=== PATIENT | male | born 1960 | race Caucasian/White ===

== ENCOUNTER 2018-03-18 06:51 | Inpatient (IN) | payer OTHER ==
[~2018-03-18] VITALS: Ht 182.9 cm; Wt 97.1 kg
[2018-03-20] MEDS ORDERED: Patient's Own Med ORAL (21:05)
--- NOTE | 2018-04-01 15:30 | NUR ---
NURSE NOTES: received patient A/A/Ox4, personal belongings noted. admission profile done. VSS. Dr Maria present. own meds sent down to pharm. ambulatory with steady gait. No acute resp distress noted. kept bed in the lowest position. siderails are up x2, call light is within reach. will cont to monitor.
[2018-04-01 16:00] VITALS: BP 136/83
[2018-04-01 16:38] LABS: BASOPHILS % (AUTO) 1.1 % (0.0-2.0); EOSINOPHILS % (AUTO) 4.4 % (0.0-3.0); HEMATOCRIT 42.1 % (42.0-52.0); HEMOGLOBIN 14.4 G/DL (14.2-18.0); LYMPHOCYTES % (AUTO) 36.8 % (20.0-45.0); MEAN CORPUSCULAR VOLUME 92 FL (80-99); MONOCYTES % (AUTO) 6.1 % (1.0-10.0); NEUTROPHILS % (AUTO) 51.7 % (45.0-75.0); PLATELET COUNT 324 K/UL (150-450); RED BLOOD COUNT 4.57 M/UL (4.70-6.10); RED CELL DISTRIBUTION WIDTH 12.1 % (11.6-14.8); WHITE BLOOD COUNT 8.9 K/UL (4.8-10.8)
--- NOTE | 2018-04-01 16:39 | History & Physical ---
History and Physical History & Physicial Full H&P dictated #[id number]. S: elective admission for 2/5 infusion per [employer] protocol [id number]. O: VSS. PE done in office today unremarkable. CBC pending. EKG OK A: 1) HIV, well controlled 2) HTN 3) Hyperlipidemia 4) GERD P: 1) proceed per protocol; plan on infusion tomorrow morning. Hermelindo Maria MD Apr 01, 2018 16:39
[2018-04-01] MEDS ORDERED: VITAMIN D1000 UNI1 ORAL (18:55)
[2018-04-01] MEDS ORDERED: ZANTAC150 MG ORAL (18:55)
[2018-04-01] MEDS ORDERED: PROTONIX40 MG ORAL (18:55)
[2018-04-01] MEDS ORDERED: LIPITOR40 MG ORAL (18:55)
[2018-04-01] MEDS ORDERED: JULUCA 50-25 M1 EACH PO (18:55)
[2018-04-01] MEDS ORDERED: DIOVAN HCT 80MG1 TAB ORAL (18:55)
--- NOTE | 2018-04-01 19:10 | NUR ---
HAND-OFF: Report given to Arsema.
--- NOTE | 2018-04-01 19:15 | History and Physical Report ---
DATE OF ADMISSION: 04/01/2018 CHIEF COMPLAINT: The patient is admitted electively for participation in [employer] clinical trial [id number]. HISTORY OF PRESENT ILLNESS: The patient is a 57-year-old man, followed by me as an outpatient for HIV infection, which is well controlled. He is participating in the above-referenced clinical trial and is admitted for infusion of investigational product tomorrow morning. He feels well. PAST MEDICAL HISTORY: He was diagnosed with HIV in 2002. He has been well controlled first many years on Tenofovir and nevirapine. He was switched in the past year to Juluca, which he is tolerating well. He has a history of hyperlipidemia and hypertension and gastroesophageal reflux. SURGICAL HISTORY: None recent. ALLERGIES: No known drug allergies. FAMILY HISTORY: Noncontributory. SOCIAL HISTORY: The patient is . His partner also has HIV. He drinks socially and does not smoke. No recent recreational drug use. Denies recent travel. MEDICATIONS ON ADMISSION: Included Juluca 1 tablet daily, Lipitor 40 mg once a day, Diovan HCT 160/12.5 daily, and Zantac 300 mg once a day. REVIEW OF SYSTEMS: He denies fever. Denies weight loss. Denies chills. Denies night sweats. No history of shortness of breath, cough. No nausea, vomiting, or diarrhea. No dysuria or hematuria. No altered consciousness. No dizziness. PHYSICAL EXAMINATION: GENERAL: Revealed a well-nourished, well-developed male who is in no acute distress. VITAL SIGNS: Pending. HEENT: Normocephalic, atraumatic. Pupils equal, round, reactive. Oropharynx was without thrush or leukoplakia. NECK: Supple. No cervical or axillary adenopathy. LUNGS: Clear to auscultation. HEART: Regular rhythm without murmurs or gallops. ABDOMEN: Soft, nontender. No hepatosplenomegaly. EXTREMITIES: Without cyanosis, clubbing, or edema. NEUROLOGIC: Grossly nonfocal for motor or sensory deficits. ASSESSMENT: 1. Elective admission for participation in [id number]. 2. HIV infection, well controlled. 3. Hyperlipidemia. 4. Hypertension. 5. Gastroesophageal reflux. DISCUSSION: The patient has provided informed consent and wishes to proceed with the clinical trial. This represents the second 5 planned infusions on an every 2-week basis. The patient verbalized consent and we will proceed per protocol. PLAN: 1. Infusion tomorrow at 0830 hours. 2. Other management per protocol. Hermelindo Maria M.D. DR: ADILSON JOB#: [id number] CC: Hermelindo Maria M.D.; [address] [facility], [address]; [place] [address]; Fax#: [phone]
--- NOTE | 2018-04-01 19:53 | NUR ---
NURSE NOTES: Received report from Lindsey JEAN. Pt A&O x4, sitting up in chair. Pt on RA. No signs of pain or distress. Pt is ambulatory. Call light within reach & bed in lowest position. Will continue to monitor pt.
[2018-04-01 20:00] VITALS: BP 139/76
[2018-04-01] MEDS: VALSARTAN HCTZ ORAL SCH (20:50)
[2018-04-01] MEDS: ATORVASTATIN 40 MG ORAL SCH (20:50)
[2018-04-01] MEDS: RANITIDINE 300 MG ORAL SCH (20:50)
[2018-04-01] MEDS: JULUCA ORAL SCH (20:50)
[2018-04-02] VITALS: BP 130/76
--- NOTE | 2018-04-02 05:52 | NUR ---
NURSE NOTES: ER notified to insert IV. ER charge nurse will come at 0730.
--- NOTE | 2018-04-02 05:54 | NUR ---
Nurse's notes: Confirmed with Amanda Hansen, Director of ED/ICU, set time to insert iv access for this patient will be at 8 am and not 6 am as endorsed by day shift. patient aware of 8 am time.
--- NOTE | 2018-04-02 07:38 | NUR ---
HAND-OFF: Report given to Julisa JEAN. Pt is stable.
--- NOTE | 2018-04-02 07:39 | NUR ---
NURSE NOTES: Patient received in stable condition. Alert and oriented, breathing unlabored on room air. On strict NPO as of 729. Denies pain or discomfort at this time. Call light within reach, will continue to monitor.
[2018-04-02] MEDS ORDERED: Investigational Drug 150 MG in NS 48 ML IV ONE (08:00)
[2018-04-02 12:00] VITALS: BP 125/77
--- NOTE | 2018-04-02 15:12 | General Progress Note ---
Progress Note Progress Note S: Pt doing well, tolerated infusion of IP this morning without reported or observed AEs. No new complaints. O: VSS Afebrile HEENT: nc/at Neck: supple Lungs: clear Cor: reg rhythm, no murmurs Abd: soft, NT Ext: no c/c/e Neuro: non-focal for motor or sensory deficits Labs Test 04/01/18 15:35 White Blood Count 8.9 K/UL (4.8-10.8) Red Blood Count 4.57 M/UL (4.70-6.10) Hemoglobin 14.4 G/DL (14.2-18.0) Hematocrit 42.1 % (42.0-52.0) Mean Corpuscular Volume 92 FL (80-99) Mean Corpuscular Hemoglobin 31.5 PG (27.0-31.0) Mean Corpuscular Hemoglobin Concent 34.2 G/DL (32.0-36.0) Red Cell Distribution Width 12.1 % (11.6-14.8) Platelet Count 324 K/UL (150-450) Mean Platelet Volume 4.7 FL (6.5-10.1) Neutrophils (%) (Auto) 51.7 % (45.0-75.0) Lymphocytes (%) (Auto) 36.8 % (20.0-45.0) Monocytes (%) (Auto) 6.1 % (1.0-10.0) Eosinophils (%) (Auto) 4.4 % (0.0-3.0) Basophils (%) (Auto) 1.1 % (0.0-2.0) A: 1) Participation in clinical trial 2) Well-controlled HIV infection 3) Hypertension 4) Hyperlipidemia P: 1) Continue per [id number] 2) Tentatively plan on d/c am of 04/04. Hermelindo Maria MD Apr 02, 2018 15:12
[2018-04-02] MEDS ORDERED: NS 275ml ONE (15:15)
[2018-04-02] MEDS ORDERED: Tubing IV Secondary IV ONE (15:15)
[2018-04-02 16:00] VITALS: BP 127/68
--- NOTE | 2018-04-02 19:28 | NUR ---
HAND-OFF: Report given to Willie JEAN.
--- NOTE | 2018-04-02 19:30 | NUR ---
NURSE NOTES: Report taken from TED Becker. Patient awake in bed, A&Ox4. IV site c/d/i and hep locked. Skin intact, no issues. Patient asked to skip 0400 VS so he can get some sleep. Able to ambulate. Transfusion was 2/23 AM. bed in lowest position, call light within reach.
[2018-04-02 20:00] VITALS: BP 151/78
[2018-04-02] MEDS: JULUCA ORAL SCH (21:00)
[2018-04-02] MEDS: RANITIDINE 300 MG ORAL SCH (21:00)
[2018-04-02] MEDS: ATORVASTATIN 40 MG ORAL SCH (21:00)
[2018-04-02] MEDS: VALSARTAN HCTZ ORAL SCH (21:00)
[2018-04-03 02:30] VITALS: BP 128/73
--- NOTE | 2018-04-03 07:19 | NUR ---
HAND-OFF: Report given to TED Pop.
--- NOTE | 2018-04-03 07:32 | NUR ---
NURSE NOTES: Patient is awake and sitting at the edge of the bed eating breakfast. Patient is able to verbalize needs. Stable with no s/s acute distress. Denies pain or SOB at this time. Patient is in good spirits. Patient is comfortable with call light within reach. All needs met at this time. Will continue to monitor.
[2018-04-03 07:50] VITALS: BP 117/81
[2018-04-03 09:17] LABS: BASOPHILS % (AUTO) 1.7 % (0.0-2.0); EOSINOPHILS % (AUTO) 3.9 % (0.0-3.0); HEMATOCRIT 44.9 % (42.0-52.0); HEMOGLOBIN 14.9 G/DL (14.2-18.0); LYMPHOCYTES % (AUTO) 26.8 % (20.0-45.0); MEAN CORPUSCULAR VOLUME 92 FL (80-99); NEUTROPHILS % (AUTO) 58.6 % (45.0-75.0); PLATELET COUNT 318 K/UL (150-450); RED BLOOD COUNT 4.88 M/UL (4.70-6.10); RED CELL DISTRIBUTION WIDTH 12.5 % (11.6-14.8); WHITE BLOOD COUNT 7.5 K/UL (4.8-10.8)
[2018-04-03 12:00] VITALS: BP 138/72
--- NOTE | 2018-04-03 14:29 | General Progress Note ---
Progress Note Progress Note S: Pt feels well, no new complaints O: VSS Afebrile HEENT:nc/at Neck: supple Lungs: clear a/p Cor: reg rhythm, no murmur Abd: soft, NT Ext: no c/c/e Neuro: nonfocal Labs Test 04/01/18 15:35 04/03/18 08:30 White Blood Count 8.9 K/UL (4.8-10.8) 7.5 K/UL (4.8-10.8) Red Blood Count 4.57 M/UL (4.70-6.10) 4.88 M/UL (4.70-6.10) Hemoglobin 14.4 G/DL (14.2-18.0) 14.9 G/DL (14.2-18.0) Hematocrit 42.1 % (42.0-52.0) 44.9 % (42.0-52.0) Mean Corpuscular Volume 92 FL (80-99) 92 FL (80-99) Mean Corpuscular Hemoglobin 31.5 PG (27.0-31.0) 30.5 PG (27.0-31.0) Mean Corpuscular Hemoglobin Concent 34.2 G/DL (32.0-36.0) 33.2 G/DL (32.0-36.0)f Red Cell Distribution Width 12.1 % (11.6-14.8) 12.5 % (11.6-14.8) Platelet Count 324 K/UL (150-450) 318 K/UL (150-450) Mean Platelet Volume 4.7 FL (6.5-10.1) 5.5 FL (6.5-10.1) Neutrophils (%) (Auto) 51.7 % (45.0-75.0) 58.6 % (45.0-75.0) Lymphocytes (%) (Auto) 36.8 % (20.0-45.0) 26.8 % (20.0-45.0) Monocytes (%) (Auto) 6.1 % (1.0-10.0) 9.0 % (1.0-10.0) Eosinophils (%) (Auto) 4.4 % (0.0-3.0) 3.9 % (0.0-3.0) Basophils (%) (Auto) 1.1 % (0.0-2.0) 1.7 % (0.0-2.0) A: 1) Participation in [id number]. Pt doing well, no AEs noted 2) well controlled HIV infection 3) hypertension 4) hyperlipidemia 5) GERD P: 1) Continue management per protocol 2) Anticipate d/c tomorrow AM with follow--up in the office this week Hermelindo Maria MD Apr 03, 2018 14:29
[2018-04-03 16:00] VITALS: BP 132/83
--- NOTE | 2018-04-03 19:31 | NUR ---
HAND-OFF: Report given to Willie JEAN. Patient is stable.
--- NOTE | 2018-04-03 19:32 | NUR ---
NURSE NOTES: Report taken from TED Pop. Patient A&Ox4. Here for clinical trial. IV sites both removed, MD aware. No skin issues. Will prepare for d/c in the am. Bed in lowest position, call light within reach.
[2018-04-03 20:00] VITALS: BP 135/85
[2018-04-03] MEDS: JULUCA ORAL SCH (20:14)
[2018-04-03] MEDS: VALSARTAN HCTZ ORAL SCH (20:14)
[2018-04-03] MEDS: RANITIDINE 300 MG ORAL SCH (20:14)
[2018-04-03] MEDS: ATORVASTATIN 40 MG ORAL SCH (20:15)
[2018-04-04] VITALS: BP 116/66
--- NOTE | 2018-04-04 07:27 | NUR ---
HAND-OFF: Report given to TED Pop. Patient has D/C packet, waiting for final lab tests.
--- NOTE | 2018-04-04 07:30 | NUR ---
NURSE NOTES: Patient is in bed awake and able to verbalize needs. Patient is in good spirits. Patient will be discharged as ordered, patient is aware. Patient ate breakfast, tolerated well. Patient is comfortable in bed in locked position and call light within reach. Will continue to monitor.
[2018-04-04 08:00] VITALS: BP 128/67
[2018-04-04 08:58] LABS: BASOPHILS % (AUTO) 1.3 % (0.0-2.0); EOSINOPHILS % (AUTO) 3.4 % (0.0-3.0); HEMATOCRIT 46.6 % (42.0-52.0); HEMOGLOBIN 15.3 G/DL (14.2-18.0); LYMPHOCYTES % (AUTO) 22.1 % (20.0-45.0); MEAN CORPUSCULAR VOLUME 93 FL (80-99); NEUTROPHILS % (AUTO) 66.3 % (45.0-75.0); PLATELET COUNT 313 K/UL (150-450); RED BLOOD COUNT 4.99 M/UL (4.70-6.10); RED CELL DISTRIBUTION WIDTH 12.4 % (11.6-14.8); WHITE BLOOD COUNT 9.3 K/UL (4.8-10.8)
--- NOTE | 2018-04-04 09:00 | NUR ---
NURSE NOTES: Patient discharged home as ordered. Patient is in good spirits. Stable with no s/s acute distress. Denies pain and SOB at this time. Thorough patient teaching given, patient verbalized understanding. No IV access. All belongings and medications with patient. Skin is clean, dry, and intact.
--- NOTE | 2018-04-04 17:30 | Discharge Summary ---
DATE OF ADMISSION: 04/01/2018 DATE OF DISCHARGE: 04/04/2018 DISCHARGE DIAGNOSES: 1. Participation in [employer] clinical trial [id number]. 2. HIV infection, well controlled. 3. Hypertension. 4. Hyperlipidemia. 5. Gastroesophageal reflux. HOSPITAL COURSE: The patient is a 57-year-old man followed by me as an outpatient for HIV infection, which is well controlled, on Juluca. He is participating in the above-mentioned clinical trial. He was admitted for infusion of the investigational products, which he had without incident or observed adverse events on the 04/02/2018. He was observed for two nights and was discharged today in stable condition to home with follow-up in the office this week. This is the second 5 planned biweekly infusions. DISCHARGE MEDICATIONS: 1. Juluca one tab once daily. 2. Lipitor 40 mg once a day. 3. Diovan HCT 160/12.5 once a day. 4. Zantac 300 mg once a day. Hermelindo Maria M.D. DR: BRENDAN JOB#: [id number] CC: Hermelindo Maria M.D.; [address] [facility], [address]; [place] [address]; Fax#: [phone]
== END 2018-04-04 09:00 | disposition home or self-care (01) | DRG 977 ==
LOC: 3E 04-01 15:24
DX: B20 Human immunodeficiency virus [HIV] disease (principal); Z00.6 Encounter for examination for normal comparison and control in clinical research program; I10 Essential (primary) hypertension; E78.5 Hyperlipidemia, unspecified; K21.9 Gastro-esophageal reflux disease without esophagitis
CPT/HCPCS: 36415; 85025

== ENCOUNTER 2018-03-18 07:05 | Inpatient (IN) | payer OTHER ==
[~2018-03-18] VITALS: Ht 182.9 cm; Wt 94.8 kg
[2018-03-18 16:00] VITALS: BP 140/93
--- NOTE | 2018-03-18 16:41 | History & Physical ---
History and Physical History & Physicial Full note dictated #[id number] 57 yo admitted electively for participation in [id number]. He feels well. VSS Afebrile PE unremarkable Meds: Diovan HCT, Protonix, Lipitor, Juluca A: 1) well-controlled HIV infection 2) hyperipidemia 3) hypertension 4) GERD P: Pt has given informed consent for participation in above clinical trial. We will infuse IP tomorrow morning. All questions offered were addressed. Hermelindo Maria MD Mar 18, 2018 16:41
[2018-03-18 16:59] LABS: BASOPHILS % (AUTO) 1.2 % (0.0-2.0); EOSINOPHILS % (AUTO) 3.1 % (0.0-3.0); HEMATOCRIT 43.2 % (42.0-52.0); HEMOGLOBIN 14.8 G/DL (14.2-18.0); LYMPHOCYTES % (AUTO) 31.4 % (20.0-45.0); MEAN CORPUSCULAR VOLUME 94 FL (80-99); NEUTROPHILS % (AUTO) 55.3 % (45.0-75.0); PLATELET COUNT 257 K/UL (150-450); RED CELL DISTRIBUTION WIDTH 12.9 % (11.6-14.8); WHITE BLOOD COUNT 8.2 K/UL (4.8-10.8)
--- NOTE | 2018-03-18 17:00 | NUR ---
NURSE NOTES: Patient direct admit, arrived to room 305 at 1545. Vitals stable. Patient alert, oriented x4, calm. Denies pain/NV. Patient ambulatory. Admission profile done, home medications, allergies, diet. Patient oriented to room, call light and s/s to report. Call light in reach, bed in lowest position, will continue to monitor.
--- NOTE | 2018-03-18 19:30 | NUR ---
HAND-OFF: Report given to Marshall Saldana RN.
--- NOTE | 2018-03-18 19:40 | NUR ---
NURSE NOTES: Received report from TED Adams. Received pt sitting in bed talking on the phone, AOX4, denies pain, no distress noted. Bed in lowest position and locked, side rails up x 2, call light within reach. Will continue to monitor.
[2018-03-18] MEDS: PANTOPRAZOLE 40 MG ORAL SCH (20:40)
[2018-03-18] MEDS: JULUCA ORAL SCH (20:40)
[2018-03-18] MEDS: VALSARTAN 160 MG ORAL SCH (20:41)
[2018-03-18] MEDS: HCTZ 12.5 MG ORAL SCH (20:41)
--- NOTE | 2018-03-18 23:15 | History and Physical Report ---
DATE OF ADMISSION: 03/18/2018 CHIEF COMPLAINT: The patient is electively admitted for participation in [employer] clinical trial [id number]. HISTORY OF PRESENT ILLNESS: The patient is a 57-year-old man followed by me as an outpatient for well-controlled human immunodeficiency virus infection. He wishes to participate in the above-captioned clinical trial and is now admitted for this. PAST MEDICAL HISTORY: He was diagnosed with human immunodeficiency virus in 2002. He started tenofovir and nevirapine and has been undetectable since; his most recent human immunodeficiency virus regimen is one Juluca tablet once a day, which he has been tolerating well. Other issues in his past history include gastroesophageal reflux for which he takes a proton pump inhibitor. He has hyperlipidemia, which was noted in 2008. He is taking Lipitor. There is also history of hypertension also diagnosed in 2008 for which he is taking Diovan HCT. There is a history of tinnitus and neuropathic pain, but no other significant medical illnesses. SURGICAL HISTORY: None recent. MEDICATIONS: As an outpatient included Diovan HCT 160 to 12.5 one tablet daily, Lipitor 40 mg once a day, Protonix 40 mg once a day, and Juluca 1 tablet once a day. ALLERGIES: None. FAMILY HISTORY: Noncontributory. SOCIAL HISTORY: The patient is . His partner also has human immunodeficiency virus. He drinks socially. He does not smoke. No recent recreational drug use. He works in an office environment. No recent travel. REVIEW OF SYSTEMS: No recent fever, cough, shortness of breath. No nausea, vomiting, or diarrhea. No hematuria. No dysuria. No chest pain. No shortness of breath. No headache. No paresthesias. PHYSICAL EXAM: GENERAL: Revealed a well-nourished, well-developed male in no acute distress. VITAL SIGNS: His temperature was 97.8, his heart rate was 81 and regular, blood pressure was 115/76, and his weight was 212 pounds. His respirations were 16 per minute. HEENT: Normocephalic and atraumatic. Pupils are equal, round, and reactive. Oropharynx was without thrush. NECK: Supple. No cervical or axillary lymphadenopathy. LUNGS: Clear to auscultation. HEART: Had a regular rhythm without murmurs or gallops. ABDOMEN: Soft and nontender. No hepatosplenomegaly. EXTREMITIES: Without cyanosis, clubbing, or edema. NEUROLOGIC: Without focal deficits. IMPRESSION: 1. Participation in clinical trial. 2. Human immunodeficiency virus infection, well controlled. 3. Hyperlipidemia. 4. Gastroesophageal reflux. 5. Hypertension. DISCUSSION/PLAN: The patient is a very pleasant 57-year-old man, who chooses to participate in a clinical trial. The risks and benefits have been discussed thoroughly and he verbalizes acceptance. The plan will be to infuse him tomorrow morning with the investigational product and he will be observed for the following 2 nights. We will anticipate discharging him on 03/21/2018. The patient was given an opportunity to verbalize questions; all were addressed. Hermelindo Maria M.D. DR: LIAN/BRIE JOB#: [id number] CC: Hermelindo Maria M.D.; [address] [place] [address], [facility] [address]; [place], [place] ; Fax#: [phone] [facility]
--- NOTE | 2018-03-19 07:52 | NUR ---
HAND-OFF: Report given to TED Cloud. Pt in stable condition.
[2018-03-19 08:00] VITALS: BP 112/74
--- NOTE | 2018-03-19 08:00 | NUR ---
NURSE NOTES: Patient sitting in bed. No complain of pain or distress at this time. Skin intact and dry. Bed lowest position. Call light within reach. Will continue to monitor.
[2018-03-19] MEDS ORDERED: Investigational Drug 150 MG in NS 48 ML IV ONE (08:40)
--- NOTE | 2018-03-19 10:50 | General Progress Note ---
Progress Note Progress Note S: Patient feels well, no new complaints. He tolerated infusion of IP well this morning. O: VSS, Afebrile. HEENT: nc/at Neck: supple Lungs: clear a/p Cor: reg Abd: soft, NT Ext: no c/c/e Labs Test 03/18/18 16:15 White Blood Count 8.2 K/UL (4.8-10.8) Red Blood Count 4.60 M/UL (4.70-6.10) Hemoglobin 14.8 G/DL (14.2-18.0) Hematocrit 43.2 % (42.0-52.0) Mean Corpuscular Volume 94 FL (80-99) Mean Corpuscular Hemoglobin 32.2 PG (27.0-31.0) Mean Corpuscular Hemoglobin Concent 34.3 G/DL (32.0-36.0) Red Cell Distribution Width 12.9 % (11.6-14.8) Platelet Count 257 K/UL (150-450) Mean Platelet Volume 5.3 FL (6.5-10.1) Neutrophils (%) (Auto) 55.3 % (45.0-75.0) Lymphocytes (%) (Auto) 31.4 % (20.0-45.0) Monocytes (%) (Auto) 9.0 % (1.0-10.0) Eosinophils (%) (Auto) 3.1 % (0.0-3.0) Basophils (%) (Auto) 1.2 % (0.0-2.0) A: 1) Participation in [id number]. No AEs noted, pt wishes to continue. 2) HIV, well controlled 3) GERD 4) Hyperlipidemia 5) Hypertension P: 1) Continue management per [id number] protocol Hermelindo Maria MD Mar 19, 2018 10:50
[2018-03-19] MEDS ORDERED: Tubing IV Secondary IV ONE (10:58)
[2018-03-19] MEDS ORDERED: NS 275ml ONE (10:58)
--- NOTE | 2018-03-19 19:20 | NUR ---
HAND-OFF: Report given to Marshall RN/Jenny RN. Patient in stable condition.
--- NOTE | 2018-03-19 20:00 | NUR ---
NURSE NOTES: Received report from TED Cloud. Received pt in bed, AOX4, denies any pain , no distress noted. Safety measures maintained. Bed in lowest position and locked, side rails up x 2, call light within reach. Will continue to monitor.
[2018-03-19] MEDS: JULUCA ORAL SCH (21:46)
[2018-03-19] MEDS: PANTOPRAZOLE 40 MG ORAL SCH (21:46)
[2018-03-19] MEDS: VALSARTAN 160 MG ORAL SCH (21:46)
[2018-03-19] MEDS: HCTZ 12.5 MG ORAL SCH (21:46)
[2018-03-20 03:00] VITALS: BP 114/78
--- NOTE | 2018-03-20 03:00 | NUR ---
NURSE NOTES: Weight via standing scale: 207.6 lbs
--- NOTE | 2018-03-20 07:21 | NUR ---
HAND-OFF: Report given to TED Chung. Pt in stable condition.
--- NOTE | 2018-03-20 07:50 | NUR ---
NURSE NOTES: Pt in bed a/o x 4 in no acute distress having breakfast. Pt denies pain. BS normoactive, lung sounds clear, heart sounds s1s2. Pt has RFA IV SL. pt made aware of plan of care, educated on the use of call light. Will continue to monitor. Addendum: 03/20/18 at 1834 by Juliet Nagy RN Disregard, the pt does not have RFA IV, in error.
[2018-03-20 09:26] LABS: BASOPHILS % (AUTO) 1.6 % (0.0-2.0); HEMATOCRIT 49.5 % (42.0-52.0); HEMOGLOBIN 16.3 G/DL (14.2-18.0); LYMPHOCYTES % (AUTO) 31.1 % (20.0-45.0); MEAN CORPUSCULAR VOLUME 94 FL (80-99); NEUTROPHILS % (AUTO) 52.4 % (45.0-75.0); PLATELET COUNT 287 K/UL (150-450); RED BLOOD COUNT 5.26 M/UL (4.70-6.10)
--- NOTE | 2018-03-20 11:14 | NUR ---
CASE MANAGEMENT: REVIEW 03/20/2018 SI:INFECTION. participate in a clinical trial. temperature was 97.8, his heart rate was 81 and regular,blood pressure was 115/76 IS: CLINICAL TRIAL MEDS MED/SURG STATUS DCP: PATIENT TO BE DISCHARGED TO HOME ONCE MEDICALLY CLEARED. PLAN OF CARE: infuse him tomorrow morning with the investigational product and he will be observed for the following 2 nights
[2018-03-20 12:00] VITALS: BP 125/79
--- NOTE | 2018-03-20 18:02 | NUR ---
Pt here for clinical trial, pt calm a/o x 4 in no acute distress. Pt under observation only, VS stable. Pt has call light within reach, bed in low position, no acute events.
--- NOTE | 2018-03-20 19:41 | NUR ---
NURSE NOTES:Patient received from Marshall Reilly patient in bed A/A/AOX4 . patient denies any at this time . no sob/ no n/v noted . safety measured and maintained . call light within reach . bed in low position at all times . will continue to monitor patient . Addendum: 03/21/18 at 0042 by POLLY MONK LVN Patient received from Juliet Reilly Patient in stable condition. call light within reach . bed in low position at all times . will continue to monitor.
--- NOTE | 2018-03-20 19:41 | NUR ---
HAND-OFF: Report given to ELLIOTT Anton. Pt left in stable condition, a/o x 4 in no acute distress. Call light within reach, bed in low position.
[2018-03-20 20:00] VITALS: BP 135/82
[2018-03-20] MEDS: JULUCA ORAL SCH (20:50)
[2018-03-20] MEDS: HCTZ 12.5 MG ORAL SCH (20:50)
[2018-03-20] MEDS: VALSARTAN 160 MG ORAL SCH (20:50)
[2018-03-20] MEDS: PANTOPRAZOLE 40 MG ORAL SCH (20:50)
[2018-03-20] MEDS ORDERED: Patient's Own Med ORAL (21:05)
--- NOTE | 2018-03-21 07:30 | NUR ---
NURSE NOTES: Patient is in bed awake and able to verbalize needs. Patient denies pain at this time. Patient is stable with no s/s acute distress. Finalizing discharge as ordered, will discharge patient after blood draw is complete. All needs met at this time. Patient comfortable in bed in locked position and call light within reach. Will continue to monitor.
--- NOTE | 2018-03-21 07:30 | NUR ---
HAND-OFF: Report given to Carlos Reilly Patient in stable condition.
--- NOTE | 2018-03-21 07:30 | NUR ---
NURSE NOTES: Patient to be discharge at 09:00 am to check patient personal belongings. patient home meds to be bean picker at pharmacy.
[2018-03-21 08:00] VITALS: BP 136/81
--- NOTE | 2018-03-21 08:57 | NUR ---
NURSE NOTES: Patient discharged home as ordered. Stable with no s/s acute distress. Patient denies pain or discomfort. Breathing is even and unlabored. No IV access. Patient is AOx4. Skin is clean, dry and intact. Thorough patient teaching given to patient, verbalized understanding. All meds returned to patient from pharmacy, patient verbalized understanding of medications, dosing, and frequency. Patient has all belongings. Left hospital in private vehicle.
[2018-03-21 09:34] LABS: BASOPHILS % (AUTO) 1.1 % (0.0-2.0); EOSINOPHILS % (AUTO) 1.6 % (0.0-3.0); HEMATOCRIT 50.1 % (42.0-52.0); HEMOGLOBIN 16.6 G/DL (14.2-18.0); MEAN CORPUSCULAR VOLUME 94 FL (80-99); MONOCYTES % (AUTO) 10.2 % (1.0-10.0); NEUTROPHILS % (AUTO) 60.1 % (45.0-75.0); PLATELET COUNT 283 K/UL (150-450); RED BLOOD COUNT 5.32 M/UL (4.70-6.10); RED CELL DISTRIBUTION WIDTH 13.1 % (11.6-14.8)
--- NOTE | 2018-03-21 14:30 | Discharge Summary ---
DATE OF ADMISSION: 03/18/2018 DATE OF DISCHARGE: 03/21/2018 DISCHARGE DIAGNOSES: 1. Participation in [employer] clinical trial [id number]. 2. Hypertension. 3. Gastroesophageal reflux. 4. Well-controlled HIV infection. 5. Hyperlipidemia. HISTORY OF PRESENT ILLNESS AND HOSPITAL COURSE: The patient is a 57-year-old male followed by sc as an outpatient for HIV infection. He was diagnosed with HIV infection in 2002 and has been on different antiretroviral agents since. He has never had virologic failure. His most recent regimen is 1 Juluca tablet daily once a day, which he has been tolerating well. The patient also has a history of GERD for which he takes a proton pump inhibitor, although he is considering changing this to a H2 shira. The patient has well-controlled hyperlipidemia and hypertension, which are being treated. He has no other significant medical illnesses. The patient was informed of the opportunity to participate in the above-named clinical trial. The patient wished to proceed after providing informed consent. The patient was admitted on 03/18/2018 and was given the investigational product (or placebo) on 03/19/2018. He tolerated this well without any adverse events noted. The patient was observed for 2 nights following in the hospital and is discharged today in stable condition to home. He will be followed up in the office this week. DISCHARGE MEDICATIONS: Juluca 1 tablet daily, Lipitor 40 mg a day, Diovan HCT 160/12.5 once a day, and Protonix 40 mg once a day. Hermelindo Maria M.D. DR: ADILSON JOB#: [id number] CC:
== END 2018-03-21 09:00 | disposition home or self-care (01) | DRG 977 ==
LOC: 3E 15:17
DX: B20 Human immunodeficiency virus [HIV] disease (principal); Z00.6 Encounter for examination for normal comparison and control in clinical research program; E78.5 Hyperlipidemia, unspecified; I10 Essential (primary) hypertension; K21.9 Gastro-esophageal reflux disease without esophagitis
CPT/HCPCS: 36415; 85025

== ENCOUNTER 2018-04-15 06:58 | Inpatient (IN) | payer OTHER ==
[~2018-04-15] VITALS: Ht 182.9 cm; Wt 95.8 kg
[~2018-04-15 06:58] MED LIST: DIOVAN HCT 80MG1 TAB ORAL; JULUCA 50-25 M1 EACH PO; LIPITOR40 MG ORAL; PROTONIX40 MG ORAL; Patient's Own Med ORAL; VITAMIN D1000 UNI1 ORAL; ZANTAC150 MG ORAL
[2018-04-15 15:41] LABS: BASOPHILS % (AUTO) 1.5 % (0.0-2.0); EOSINOPHILS % (AUTO) 3.4 % (0.0-3.0); HEMATOCRIT 44.4 % (42.0-52.0); HEMOGLOBIN 14.9 G/DL (14.2-18.0); LYMPHOCYTES % (AUTO) 36.4 % (20.0-45.0); MEAN CORPUSCULAR VOLUME 91 FL (80-99); MONOCYTES % (AUTO) 8.5 % (1.0-10.0); NEUTROPHILS % (AUTO) 50.3 % (45.0-75.0); PLATELET COUNT 288 K/UL (150-450); RED BLOOD COUNT 4.85 M/UL (4.70-6.10); RED CELL DISTRIBUTION WIDTH 12.1 % (11.6-14.8); WHITE BLOOD COUNT 7.9 K/UL (4.8-10.8)
--- NOTE | 2018-04-15 15:46 | History & Physical ---
History and Physical History & Physicial Full H&P dictated #[id number]. 57 yo male admitted for 3rd of 5 biweekly infusions of IP as part of [employer] protocol [id number]. Since last visit, he has done well with no new complaints. PE: T 97.8 BP 121/79 R 16 P 83 HEENT: nc/at Lungs: clear Cor: reg Abd: soft, NT Ext: no c/c/e Skin: no rashes Labs Test 04/15/18 15:07 White Blood Count 7.9 K/UL (4.8-10.8) Red Blood Count 4.85 M/UL (4.70-6.10) Hemoglobin 14.9 G/DL (14.2-18.0) Hematocrit 44.4 % (42.0-52.0) Mean Corpuscular Volume 91 FL (80-99) Mean Corpuscular Hemoglobin 30.7 PG (27.0-31.0) Mean Corpuscular Hemoglobin Concent 33.6 G/DL (32.0-36.0) Red Cell Distribution Width 12.1 % (11.6-14.8) Platelet Count 288 K/UL (150-450) Mean Platelet Volume 4.7 FL (6.5-10.1) Neutrophils (%) (Auto) 50.3 % (45.0-75.0) Lymphocytes (%) (Auto) 36.4 % (20.0-45.0) Monocytes (%) (Auto) 8.5 % (1.0-10.0) Eosinophils (%) (Auto) 3.4 % (0.0-3.0) Basophils (%) (Auto) 1.5 % (0.0-2.0) A: 1) Participation in clinical trial 2) HIV well controlled 3) HTN 4) hyperlipidemia 5) GERD P: 1) proceed with infusion of [id number] vs placebo in AM 2) further management per protocol Hermelindo Maria MD Apr 15, 2018 15:46
[2018-04-15 16:00] VITALS: BP 135/78
[2018-04-15] MEDS ORDERED: Vitamin D 1000 IU Tab ORAL SCH (17:15)
--- NOTE | 2018-04-15 19:18 | NUR ---
Report given to oncoming shift
--- NOTE | 2018-04-15 19:18 | NUR ---
NURSE NOTES:Patient received A/AOX4 . Family friend at bedside . patient denies any pain at this time . no s/s of distress noted . call light within reach . bed in low position . will continue to monitor patient .
[2018-04-15 20:00] VITALS: BP 128/75
[2018-04-15] MEDS: ATORVASTATIN 40 MG ORAL SCH (20:54)
[2018-04-15] MEDS: DIOVAN HCT ORAL SCH (20:54)
[2018-04-15] MEDS: RANITIDINE 300 MG ORAL SCH (20:54)
--- NOTE | 2018-04-15 21:31 | History and Physical Report ---
DATE OF ADMISSION: 04/15/2018 CHIEF COMPLAINT: The patient is electively admitted at this time to continue his participation in [employer] Clinical Trial [id number]. HISTORY OF PRESENT ILLNESS: The patient is a 57-year-old man followed by me as an outpatient for human immunodeficiency virus infection, which has historically been well controlled currently on Juluca. He is admitted now in preparation for administering the investigational product tomorrow morning. He has no new complaints at this time. PAST MEDICAL HISTORY: The patient was diagnosed with human immunodeficiency virus in 2002. He was on tenofovir and nevirapine with undetectable viral load and was switched within the past year to Juluca, which he is tolerating well. There is also history of gastroesophageal reflux disease, hypertension, and hypercholesterolemia. PAST SURGICAL HISTORY: None relevant to this admission. MEDICATIONS: As an outpatient include Zantac 300 mg once a day, Diovan HCT 160/12.5 once a day, Lipitor 40 mg once a day, and Juluca 1 tablet once a day. ALLERGIES: No known drug allergies. FAMILY HISTORY: Noncontributory. The patient is . His spouse also has human immunodeficiency virus. SOCIAL HISTORY: He drinks socially. He does not smoke cigarettes and is not using recreational drugs. REVIEW OF SYSTEMS: He denies fever or chills. He denies night sweats. No history of sore throat, cough, or chest congestion. No chest pain. No dyspnea on exertion. No nausea, vomiting, or diarrhea. No hematuria. No dysuria. No alterations in the state of consciousness. PHYSICAL EXAMINATION: GENERAL: Revealed a well-nourished and well-developed male, who is in no acute distress. He is alert and oriented x4. VITAL SIGNS: His temperature when examined in the clinic today was 97.8, the heart rate was 79 and regular, the blood pressure was 121/79, and his respirations were 16 per minute. His weight was 216.2 pounds. HEENT: Normocephalic and atraumatic. Pupils are equal, round, and reactive. Oropharynx is without thrush or leukoplakia. NECK: Supple. There is no cervical or axillary adenopathy. LUNGS: Clear to auscultation. HEART: Had a regular rhythm without murmurs or gallops. ABDOMEN: Soft, nontender, and mildly obese. There were no masses palpated. No hepatosplenomegaly. EXTREMITIES: Without cyanosis, clubbing, or edema. NEUROLOGIC: Grossly nonfocal for motor or sensory deficits. SKIN: Had no rashes. LABORATORY DATA: Pending. IMPRESSION: 1. Participation in [employer] clinical trial. 2. Well-controlled human immunodeficiency virus infection. 3. Hyperlipidemia. 4. Hypertension. 5. Gastroesophageal reflux. DISCUSSION: The patient is a very pleasant 57-year-old man who is now admitted to the third of 5 projected infusions of [id number] versus placebo. He has been informed of risks and benefits of participation and verbalizes understanding. He wishes to continue under plan. 1. Infuse investigational product tomorrow morning with close monitoring over the following 2 nights. 2. Continue his other medications. Hermelindo Maria M.D. DR: CHRISTINE JOB#: [id number] CC: RED
[2018-04-16 04:00] VITALS: BP 113/69
[2018-04-16] MEDS ORDERED: Investigational Drug 150 MG in NS 48 ML IV ONE (07:30)
[2018-04-16 08:00] VITALS: BP 107/65
--- NOTE | 2018-04-16 08:00 | NUR ---
NURSE NOTES: Received report from Sloane JEAN, pt a/a/o x4 pt laying in bed with no signs of distress or other issues at this time. IV on the left AC gauge #20 and IV left hand gauge #20 heplock. pt ambulating around the room with steady gait. Dr. Maria at bedside starting the clinical trial medication. RN will monitor pt. call light within reach. bed in lowest position. side rales up x2. I will f/u as needed.
[2018-04-16] MEDS ORDERED: Atorvastatin 80mg tab ORAL SCH (09:00)
[2018-04-16 12:00] VITALS: BP 114/67
--- NOTE | 2018-04-16 15:03 | General Progress Note ---
Progress Note Progress Note S: Pt doing well, tolerated infusion of IP well this morning with no observed AEs O: VSS Afebrile HEENT: nc/at Neck: supple Lungs: clear to a/p Cor: reg rate, rhythm; no murmurs Abd: soft, NT BS present Ext: no c/c/e Neuro: non-focal Skin: no rashes A: 1) Participation in [id number] 2) HIV, well-controlled 3) hypertension 4) hyperlipidemia P: 1) Continue per protocol 2) check CBC in AM 3) plan on d/c 04/18 if stable Hermelindo Maria MD Apr 16, 2018 15:03
[2018-04-16 16:00] VITALS: BP 113/72
--- NOTE | 2018-04-16 19:21 | NUR ---
NURSE NOTES:Patient received from Kashif Reilly. Patient denies any pain . no s/s of distress noted LAC G#20 H/L Patent and intact . call light within reach . bed in low position at all times . will continue to monitor
--- NOTE | 2018-04-16 19:21 | NUR ---
HAND-OFF: Report given to Sloane ELECTROPLATING SALES REPRESENTATIVE, pt instable condition.
[2018-04-16 20:00] VITALS: BP 119/69
[2018-04-16] MEDS ORDERED: NS 275ml ONE (20:01)
[2018-04-16] MEDS ORDERED: Tubing IV Secondary IV ONE (20:01)
[2018-04-16] MEDS: ATORVASTATIN 40 MG ORAL SCH (20:35)
[2018-04-16] MEDS: DIOVAN HCT ORAL SCH (20:36)
[2018-04-16] MEDS: RANITIDINE 300 MG ORAL SCH (20:36)
[2018-04-17 03:00] VITALS: BP 110/67
--- NOTE | 2018-04-17 07:25 | NUR ---
HAND-OFF: Report given to KARINA Alvarez
--- NOTE | 2018-04-17 07:30 | NUR ---
NURSE NOTES: Patient is in bed awake and able to verbalize needs. Patient stable and here for clinical trial. Denies pain or discomfort. Patient is in good spirits. VSS. All needs met at this time. Patient is comfortable in bed with call light within reach. Will continue to monitor.
[2018-04-17 08:00] VITALS: BP 126/68
[2018-04-17 10:26] LABS: BASOPHILS % (AUTO) 1.2 % (0.0-2.0); EOSINOPHILS % (AUTO) 3.6 % (0.0-3.0); HEMATOCRIT 47.4 % (42.0-52.0); HEMOGLOBIN 15.3 G/DL (14.2-18.0); LYMPHOCYTES % (AUTO) 34.4 % (20.0-45.0); MEAN CORPUSCULAR VOLUME 93 FL (80-99); MONOCYTES % (AUTO) 11.9 % (1.0-10.0); NEUTROPHILS % (AUTO) 48.9 % (45.0-75.0); PLATELET COUNT 283 K/UL (150-450); RED BLOOD COUNT 5.07 M/UL (4.70-6.10); RED CELL DISTRIBUTION WIDTH 12.1 % (11.6-14.8); WHITE BLOOD COUNT 8.1 K/UL (4.8-10.8)
--- NOTE | 2018-04-17 17:53 | NUR ---
CHARGE NURSE NOTE: Pt brought a dog to his room, (stated - "this is a service dog"). Dr. Maria was notified, he said it is OK for pt to keep his dog at the bedside.
--- NOTE | 2018-04-17 19:30 | NUR ---
HAND-OFF: Report given to Kesha JEAN. Patient is stable.
--- NOTE | 2018-04-17 19:38 | NUR ---
NURSE NOTES: Pt received awake, alert with dog at bedside, no signs of distress or c/o pain, able to make needs known, will continue to monitor.
[2018-04-17] MEDS: ATORVASTATIN 40 MG ORAL SCH (20:50)
[2018-04-17] MEDS: DIOVAN HCT ORAL SCH (20:51)
[2018-04-17] MEDS: RANITIDINE 300 MG ORAL SCH (20:52)
--- NOTE | 2018-04-18 07:20 | NUR ---
NURSE NOTES: Patient is in bed awake and able to verbalize needs. Patient denies pain at this time. Stable with no s/s acute distress. Patient is waiting for clinic staff to draw blood and take EKG. WIll continue to monitor.
--- NOTE | 2018-04-18 07:28 | NUR ---
HAND-OFF: Report given to TED Pop.
--- NOTE | 2018-04-18 09:00 | NUR ---
NURSE NOTES: Patient discharged home as ordered. Stable with no s/s acute distress. Denies pain and SOB. No IV access. Skin is clean, dry, and intact. Patient has all belongings. All procedures completed by clinic staff Pedro Luis. Blood sample sent to lab. Clinic staff gave patient teaching, patient verbalized understanding. Patient assisted downstairs by clinic staff.
[2018-04-18 09:42] LABS: BASOPHILS % (AUTO) 1.4 % (0.0-2.0); EOSINOPHILS % (AUTO) 2.4 % (0.0-3.0); HEMATOCRIT 44.6 % (42.0-52.0); HEMOGLOBIN 14.8 G/DL (14.2-18.0); MEAN CORPUSCULAR VOLUME 93 FL (80-99); MONOCYTES % (AUTO) 13.7 % (1.0-10.0); NEUTROPHILS % (AUTO) 45.6 % (45.0-75.0); PLATELET COUNT 275 K/UL (150-450); RED BLOOD COUNT 4.78 M/UL (4.70-6.10); RED CELL DISTRIBUTION WIDTH 12.6 % (11.6-14.8); WHITE BLOOD COUNT 7.4 K/UL (4.8-10.8)
--- NOTE | 2018-04-18 11:32 | NUR ---
CASE MANAGEMENT:REVIEW 04/15/18 ~ PATIENT WAS ADMITTED FOR [employer] CLINICAL TRIAL 04/18/18 ~ DISCHARGED
--- NOTE | 2018-04-19 | Discharge Summary ---
DATE OF ADMISSION: 04/15/2018 DATE OF DISCHARGE: 04/18/2018 DISCHARGE DIAGNOSES: 1. Participation in [employer] clinical trial, [id number]. 2. HIV infection, well controlled. 3. Hypertension. 4. Hypercholesterolemia. 5. Gastroesophageal reflux disease. HISTORY OF PRESENT ILLNESS AND HOSPITAL COURSE: The patient is a 57-year-old man followed by dc as an outpatient for asymptomatic HIV infection. He is a participant in the above-mentioned clinical trial. He was admitted for the third of 5 planned biweekly infusions of his investigational agent, [id number] (or placebo). This study is double-blind. The patient had the investigational product infused on the morning of 04/16/2018. He tolerated it well without any evident adverse events and was observed in the hospital for two nights subsequently. DISCHARGE DISPOSITION: The patient is discharged home with self care. DISCHARGE CONDITION: Stable. DISCHARGE MEDICATIONS: Include Juluca 1 tablet once a day, Diovan HCT 160/12.5 mg once a day, Zantac 300 mg once a day, and Lipitor 40 mg once a day. Hermelindo Maria M.D. DR: BRENDAN JOB#: [id number] CC: Hermelindo Maria M.D.; [address] [facility], [address]; [place] [address]; Fax#: [phone]
== END 2018-04-18 09:00 | disposition home or self-care (01) | DRG 977 ==
LOC: 3E 14:55
DX: B20 Human immunodeficiency virus [HIV] disease (principal); Z00.6 Encounter for examination for normal comparison and control in clinical research program; I10 Essential (primary) hypertension; E78.5 Hyperlipidemia, unspecified; K21.9 Gastro-esophageal reflux disease without esophagitis
CPT/HCPCS: 36415; 85025

== ENCOUNTER 2018-04-29 07:58 | Inpatient (IN) | payer OTHER ==
[~2018-04-29] VITALS: Ht 182.9 cm; Wt 96.2 kg
--- NOTE | 2018-04-29 15:30 | NUR ---
NURSE NOTES: received as direct admit for clinical trials. admission profile done. personal belongings reviewed and noted. made aware of the current orders. bed is in lowest position. call light is within reach. siderails are up x2. no acte resp distress noted. will cont to monitor.
[2018-04-29 16:00] VITALS: BP 149/95
[2018-04-29 16:20] LABS: BASOPHILS % (AUTO) 1.4 % (0.0-2.0); EOSINOPHILS % (AUTO) 4.6 % (0.0-3.0); HEMATOCRIT 45.5 % (42.0-52.0); HEMOGLOBIN 14.9 G/DL (14.2-18.0); LYMPHOCYTES % (AUTO) 37.1 % (20.0-45.0); MEAN CORPUSCULAR VOLUME 92 FL (80-99); MONOCYTES % (AUTO) 5.9 % (1.0-10.0); PLATELET COUNT 342 K/UL (150-450); RED BLOOD COUNT 4.96 M/UL (4.70-6.10); WHITE BLOOD COUNT 7.2 K/UL (4.8-10.8)
--- NOTE | 2018-04-29 16:20 | History & Physical ---
History and Physical History & Physicial Full H&P dictated #[id number] 57 yo male admitted for 4th of 5 planned infusions per [employer] protocol [id number]. No new complaints since last seen by me 2 weeks ago. T 98.6 HEENT: nc/at Lungs: clear Cor: reg Abd: soft, NT Skin: no rashes A: 1) well-contolled HIV 2) HTN 3) GERD 4) hyperlipidemia 5) HCV-auto cure P: Proceed per protocol; plan on infusion tomorrow AM at 0830. Hermelindo Maria MD Apr 29, 2018 16:20
--- NOTE | 2018-04-29 16:30 | NUR ---
NURSE NOTES: Dr Maria present and met with patient in the room. patient does not have an IV access and will be inserted tomorrow. will cont to monitor.
--- NOTE | 2018-04-29 19:16 | NUR ---
NURSE NOTES:Patient received from Maeve Hernandez Patient A/A/OX4 . With family friend at bedside . Patient denies any pain at this time . no s/s of distress noted . call light within reach . bed in low position at all times . will continue to monitor
--- NOTE | 2018-04-29 19:16 | NUR ---
HAND-OFF: Report given to Sloane.
[2018-04-29 20:00] VITALS: BP 142/81
--- NOTE | 2018-04-29 21:00 | NUR ---
NURSE NOTES:Patient own Medication Valtrex 1gm po. Patient stated " I'm not taking that Valtrex medication charge nurse and pharmacy notified and aware ,Pharmacy left message to Hermelindo Nicolas .Awaiting to call back.
[2018-04-29] MEDS: JULUCA ORAL SCH (21:05)
[2018-04-29] MEDS: ZANTAC 300 MG ORAL SCH (21:06)
[2018-04-29] MEDS: HYDROCHLOROTHIAZIDE ORAL SCH (21:32)
[2018-04-29] MEDS: VALSARTAN ORAL SCH (21:32)
--- NOTE | 2018-04-29 21:45 | History and Physical Report ---
DATE OF ADMISSION: 04/29/2018 CHIEF COMPLAINT: The patient is electively admitted for continued participation in [employer] protocol [id number]. HISTORY OF PRESENT ILLNESS: The patient is a 57-year-old man followed by me as an outpatient for human immunodeficiency virus infection which has been well controlled. The patient has elected to participate in the above-referenced clinical trial and is admitted for the fourth of 5 biweekly infusions of investigational agent (GS-9722 or a placebo). The patient has tolerated the previous 3 infusions well with no adverse events noted. The interim medical history since his last visit 2 weeks ago has been unremarkable. PAST MEDICAL HISTORY: The patient was diagnosed with human immunodeficiency virus in 2002. 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 The patient has never had virologic failure for his human immunodeficiency virus treatments. Most recently, he has been on Juluca 1 tablet daily. There is a history of gastroesophageal reflux, hypertension, and hypercholesterolemia. ALLERGIES: No known drug allergies. FAMILY HISTORY: Noncontributory. SOCIAL HISTORY: The patient is . His partner also has human immunodeficiency virus. He drinks socially and does not smoke. No recent recreational drug use. MEDICATIONS ON ADMISSION: Include Juluca 1 tablet daily, Zantac 300 mg once a day, Lipitor 40 mg once a day, and Diovan HCT 160/12.5 once a day. REVIEW OF SYSTEMS: Denies fevers, cough, shortness of breath, and chills. Denies chest pain. Denies nausea, vomiting, or diarrhea. Denies dysuria or hematuria. No headaches. No loss of consciousness. PHYSICAL EXAM: GENERAL: Revealed a well-nourished, well-developed male, who is in no acute distress. He was alert and oriented x4. VITAL SIGNS: Temperature of 98.6, blood pressure 137/85, respirations 16, BMI of 29, and a heart rate of 86. HEENT: Normocephalic and atraumatic. Pupils are equal, round, and reactive. Oropharynx was without thrush or leukoplakia. NECK: Supple. There is no cervical or axillary adenopathy. LUNGS: Clear to auscultation. HEART: Has a regular rhythm without murmurs or gallops. ABDOMEN: Soft and nontender. No hepatosplenomegaly. EXTREMITIES: Without cyanosis, clubbing, or edema. NEUROLOGIC: Nonfocal for motor or sensory deficits. There are no rashes apparent. IMPRESSION: 1. Participation in clinical trial. 2. Human immunodeficiency virus infection, well controlled. 3. Hyperlipidemia. 4. Hypertension. 5. Gastroesophageal reflux disease. 6. Hepatitis C, autocure. DISCUSSION: The patient is a 57-year-old man, who is electively admitted to continue his participation in this clinical trial. Risks and benefits were discussed in detail and the patient wishes to proceed. Under plan of management per study protocol, we will plan on infusing the patient tomorrow morning with investigational product. Hermelindo Maria M.D. DR: CHRISTINE JOB#: [id number] CC: Hermelindo Maria M.D.; [facility]; [place] [address]; Fax#: [phone]
[2018-04-30 04:00] VITALS: BP 123/82
--- NOTE | 2018-04-30 07:16 | NUR ---
HAND-OFF: Report given to Jennie ReillyPatient in stable condition.
--- NOTE | 2018-04-30 07:47 | NUR ---
NURSE NOTES: Patient received in stable condition, resting in bed. Alert and oriented, denies respiratory distress and pain at this time. Call light placed within reach, will continue to monitor.
[2018-04-30] MEDS ORDERED: Investigational Drug 150 MG in NS 48 ML IV ONE (08:00)
--- NOTE | 2018-04-30 12:21 | General Progress Note ---
Progress Note Progress Note S: Pt was infused the morning with IP which was tolerated well. No AEs noted; pt feels well. O: VSS Afebrile HEENT: nc/at Lungs: clear Cor: reg Abd: soft, nt Ext: no c/c/e Skin: no rashes Labs Test 04/29/18 15:50 White Blood Count 7.2 K/UL (4.8-10.8) Red Blood Count 4.96 M/UL (4.70-6.10) Hemoglobin 14.9 G/DL (14.2-18.0) Hematocrit 45.5 % (42.0-52.0) Mean Corpuscular Volume 92 FL (80-99) Mean Corpuscular Hemoglobin 30.0 PG (27.0-31.0) Mean Corpuscular Hemoglobin Concent 32.7 G/DL (32.0-36.0) Red Cell Distribution Width 12.0 % (11.6-14.8) Platelet Count 342 K/UL (150-450) Mean Platelet Volume 5.1 FL (6.5-10.1) Neutrophils (%) (Auto) 51.0 % (45.0-75.0) Lymphocytes (%) (Auto) 37.1 % (20.0-45.0) Monocytes (%) (Auto) 5.9 % (1.0-10.0) Eosinophils (%) (Auto) 4.6 % (0.0-3.0) Basophils (%) (Auto) 1.4 % (0.0-2.0) A: 1) participation in [id number] 2) HIV, well controlled 3) hyperlipidemia 4) HTN 5) GERD P: Continue management per protocol Hermelindo Maria MD Apr 30, 2018 12:21
[2018-04-30] MEDS ORDERED: Tubing IV Secondary IV ONE (14:32)
[2018-04-30] MEDS ORDERED: NS 500ML ONE (14:32)
[2018-04-30 16:00] VITALS: BP 132/71
--- NOTE | 2018-04-30 19:07 | NUR ---
HAND-OFF: Report given to Elan JEAN.
--- NOTE | 2018-04-30 19:07 | NUR ---
NURSE NOTES:Patient received from Julisa Raza R.N. Patient in bed A/A/OX4 . Patient denies any pain at this time . no s/s of distress noted RAC g#20 H/L Patent and intact , call light witin reach bed in low position at all times . will continue to monitor.
[2018-04-30 20:00] VITALS: BP 130/77
[2018-04-30] MEDS: JULUCA ORAL SCH (20:37)
[2018-04-30] MEDS: VALSARTAN ORAL SCH (20:38)
[2018-04-30] MEDS: HYDROCHLOROTHIAZIDE ORAL SCH (20:38)
[2018-04-30] MEDS: ZANTAC 300 MG ORAL SCH (20:39)
[2018-05-01 02:00] VITALS: BP 114/77
--- NOTE | 2018-05-01 07:45 | NUR ---
NURSE NOTES: Patient received in bed sitting having breakfast. aware and reminded with diet instructions. Able to make things known. denies respiratory distress and pain at this time. Call light placed within reach, will continue to monitor.
[2018-05-01 08:00] VITALS: BP 130/78
[2018-05-01 09:08] LABS: BASOPHILS % (AUTO) 1.4 % (0.0-2.0); EOSINOPHILS % (AUTO) 4.8 % (0.0-3.0); HEMATOCRIT 46.2 % (42.0-52.0); HEMOGLOBIN 14.9 G/DL (14.2-18.0); LYMPHOCYTES % (AUTO) 36.6 % (20.0-45.0); MEAN CORPUSCULAR VOLUME 92 FL (80-99); MONOCYTES % (AUTO) 9.4 % (1.0-10.0); NEUTROPHILS % (AUTO) 47.8 % (45.0-75.0); PLATELET COUNT 318 K/UL (150-450); RED CELL DISTRIBUTION WIDTH 12.4 % (11.6-14.8); WHITE BLOOD COUNT 6.9 K/UL (4.8-10.8)
--- NOTE | 2018-05-01 16:07 | NUR ---
CASE MANAGEMENT: INITIAL REVIEW PATIENT IS APART OF A CLINICAL TRIAL
--- NOTE | 2018-05-01 19:00 | NUR ---
HAND-OFF: Report given to
--- NOTE | 2018-05-01 19:30 | NUR ---
NURSE NOTES: Received report from ELLIOTT Mcfarlane. Received pt sitting up in bed, AOX4, denies any pain, no distress noted. Bed in lowest position and locked, side rails up x 2, call light within reach. Will continue to monitor.
[2018-05-01 20:00] VITALS: BP 121/77
[2018-05-01] MEDS: JULUCA ORAL SCH (20:16)
[2018-05-01] MEDS: HYDROCHLOROTHIAZIDE ORAL SCH (20:16)
[2018-05-01] MEDS: VALSARTAN ORAL SCH (20:16)
[2018-05-01] MEDS: ZANTAC 300 MG ORAL SCH (20:16)
--- NOTE | 2018-05-02 07:08 | NUR ---
HAND-OFF: Report given to TED Murguia. Pt in stable condition.
--- NOTE | 2018-05-02 07:52 | General Progress Note ---
Progress Note Progress Note Late entry. Pt was seen by me at 2:00pm Monday 05/01. S: No new complaints O: VSS Afebrile HEENT: nc/at Neck: supple Lungs: clear Cor: reg Abd: soft Skin: no rashes Labs Test 04/29/18 15:50 05/01/18 08:30 White Blood Count 7.2 K/UL (4.8-10.8) 6.9 K/UL (4.8-10.8) Red Blood Count 4.96 M/UL (4.70-6.10) 5.00 M/UL (4.70-6.10) Hemoglobin 14.9 G/DL (14.2-18.0) 14.9 G/DL (14.2-18.0) Hematocrit 45.5 % (42.0-52.0) 46.2 % (42.0-52.0) Mean Corpuscular Volume 92 FL (80-99) 92 FL (80-99) Mean Corpuscular Hemoglobin 30.0 PG (27.0-31.0) 29.9 PG (27.0-31.0) Mean Corpuscular Hemoglobin Concent 32.7 G/DL (32.0-36.0) 32.4 G/DL (32.0-36.0) Red Cell Distribution Width 12.0 % (11.6-14.8) 12.4 % (11.6-14.8) Platelet Count 342 K/UL (150-450) 318 K/UL (150-450) Mean Platelet Volume 5.1 FL (6.5-10.1) 5.4 FL (6.5-10.1) Neutrophils (%) (Auto) 51.0 % (45.0-75.0) 47.8 % (45.0-75.0) Lymphocytes (%) (Auto) 37.1 % (20.0-45.0) 36.6 % (20.0-45.0) Monocytes (%) (Auto) 5.9 % (1.0-10.0) 9.4 % (1.0-10.0) Eosinophils (%) (Auto) 4.6 % (0.0-3.0) 4.8 % (0.0-3.0) Basophils (%) (Auto) 1.4 % (0.0-2.0) 1.4 % (0.0-2.0) A: 1) participation in [employer] protocol [id number]; pt doing well with no AEs at this time. 2) HIV, well-controlled 3) GERD 4) hyperlipidemia 5) hypertension P: 1) Plan is to discharge 05/02 with follow-up in office this week. Hermeilndo Maria MD May 02, 2018 07:52
--- NOTE | 2018-05-02 08:15 | NUR ---
NURSE NOTES: Pt received awake in stable condition aware and awaiting discharge. Packet prepared , personal belongings with patient. Claims Director gave pt his personal medication from pharmacy. Pt to return in two weeks. Escorted by staff member to exit. No concerns verbalized at the time of discharge.
[2018-05-02 08:38] LABS: BASOPHILS % (AUTO) 1.5 % (0.0-2.0); EOSINOPHILS % (AUTO) 4.2 % (0.0-3.0); HEMATOCRIT 48.3 % (42.0-52.0); HEMOGLOBIN 15.6 G/DL (14.2-18.0); LYMPHOCYTES % (AUTO) 37.2 % (20.0-45.0); MEAN CORPUSCULAR VOLUME 93 FL (80-99); MONOCYTES % (AUTO) 7.3 % (1.0-10.0); NEUTROPHILS % (AUTO) 49.8 % (45.0-75.0); PLATELET COUNT 335 K/UL (150-450); RED BLOOD COUNT 5.21 M/UL (4.70-6.10); WHITE BLOOD COUNT 8.3 K/UL (4.8-10.8)
--- NOTE | 2018-05-03 13:51 | Discharge Summary ---
DATE OF ADMISSION: 04/29/2018 DATE OF DISCHARGE: 05/02/2018 DISCHARGE DIAGNOSES: 1. Participation in [employer], clinical trial [id number]. 2. Human immunodeficiency virus infection, well controlled. 3. Hyperlipidemia. 4. Hypertension. 5. Gastroesophageal reflux. HISTORY OF PRESENT ILLNESS AND HOSPITAL COURSE: The patient is a 57-year-old man followed by co as an outpatient for HIV infection which is well controlled. He was admitted electively on 04/29/2018 to continue his participation in the above captioned clinical trial. This was his fourth of five projected biweekly administrations of investigational product. On the morning of the second hospital day, the patient had the infusion which was tolerated well. There were no adverse events noted. The patient was observed in the hospital for the next two nights and was now discharged in stable condition to home. Follow-up will be in the office in one week. DISCHARGE MEDICINES: Include Juluca 1 tablet daily, Zantac 300 mg once a day, Lipitor 40 mg a day, and Diovan HCT 160/12.5 once a day. Hermelindo Maria M.D. DR: Marimar JOB#: [id number] CC: Hermelindo Maria M.D.; [address] [place] [address]; [place] [address]; Fax#: [phone]
== END 2018-05-02 08:10 | disposition home or self-care (01) | DRG 977 ==
LOC: 3E 14:43
DX: B20 Human immunodeficiency virus [HIV] disease (principal); Z00.6 Encounter for examination for normal comparison and control in clinical research program; E78.5 Hyperlipidemia, unspecified; I10 Essential (primary) hypertension; K21.9 Gastro-esophageal reflux disease without esophagitis; E78.00 Pure hypercholesterolemia, unspecified; Z86.19 Personal history of other infectious and parasitic diseases
CPT/HCPCS: 36415; 85025

== ENCOUNTER 2018-05-13 09:34 | Inpatient (IN) | payer OTHER ==
[~2018-05-13] VITALS: Ht 182.9 cm; Wt 96.7 kg
--- NOTE | 2018-05-13 13:35 | History & Physical ---
History and Physical History & Physicial Full H&P dictated #[id number]. 57 yo male electively admitted for participation in [id number]. This is the 5th of five planned infusions of IP. He is doing well, with no AEs noted since last infusion 2 weeks ago. O: VSS pending HEENT: nc/at Lungs: clear Cor: reg Abd: soft, NT Labs: pending A: 1) Participation in clinical trial 2) HIV-well controlled 3) HTN 4) hyperlipidemia 5) GERD P: 1) manage per protocol 2) plan on infusion tomorrow morning. Hermelindo Maria MD May 13, 2018 13:35
[2018-05-13 14:54] LABS: BASOPHILS % (AUTO) 1.1 % (0.0-2.0); HEMATOCRIT 43.6 % (42.0-52.0); HEMOGLOBIN 14.4 G/DL (14.2-18.0); LYMPHOCYTES % (AUTO) 29.6 % (20.0-45.0); MEAN CORPUSCULAR VOLUME 90 FL (80-99); MONOCYTES % (AUTO) 7.5 % (1.0-10.0); NEUTROPHILS % (AUTO) 59.8 % (45.0-75.0); PLATELET COUNT 292 K/UL (150-450); RED BLOOD COUNT 4.84 M/UL (4.70-6.10); RED CELL DISTRIBUTION WIDTH 12.1 % (11.6-14.8); WHITE BLOOD COUNT 7.4 K/UL (4.8-10.8)
[2018-05-13 16:50] VITALS: BP 134/91
--- NOTE | 2018-05-13 17:45 | History and Physical Report ---
DATE OF ADMISSION: 05/13/2018 CHIEF COMPLAINT: The patient is electively admitted for continued participation in [employer] clinical trial [id number]. HISTORY OF PRESENT ILLNESS: The patient is a 57-year-old man followed by me as an outpatient for HIV infection which has been well controlled. He is a participant in the above-mentioned clinical trial. He is now admitted for fifth of 5 biweekly infusions of investigational product. He has tolerated the previous four doses well. PAST MEDICAL HISTORY: The patient was diagnosed with HIV in 2002. He was started on tenofovir and nevirapine and has been undetectable ever since. He was switched to Juluca about a year ago and is doing well. Other issues include gastroesophageal reflux, hyperlipidemia, and hypertension. PAST SURGICAL HISTORY: None recent. MEDICATIONS: Include Juluca one tab daily, Diovan HCT 160/12.5 one tab daily, Lipitor 40 mg once a day, and Zantac 300 mg once a day. ALLERGIES: No known drug allergies. FAMILY HISTORY: Noncontributory. SOCIAL HISTORY: The patient is . His partner also has HIV infection which was well controlled. He drinks socially. Does not smoke. He had a recent urine screen positive for cocaine. There is no history of recent travel. REVIEW OF SYSTEMS: The patient denies fevers, chills, sweats. Denies cough or shortness of breath. Denies chest pain. Denies nausea, vomiting, or diarrhea. Denies dysuria or hematuria. No headache or skin rashes. PHYSICAL EXAMINATION: GENERAL: Revealed a well-nourished and well-developed male, who is in no acute distress. He is alert and oriented x4. VITAL SIGNS: Pending. HEENT: Normocephalic and atraumatic. Pupils are equal, round, and reactive. Oropharynx is without thrush or leukoplakia. NECK: Supple. There is no cervical or axillary adenopathy. LUNGS: Clear to auscultation. HEART: Regular rhythm without murmurs or gallops. ABDOMEN: Soft and nontender. No hepatosplenomegaly. EXTREMITIES: Without cyanosis, clubbing, or edema. NEUROLOGIC: Grossly nonfocal for motor or sensory deficits. SKIN: No rashes. LABORATORY DATA: Pending. IMPRESSION: 1. Participation in [employer] clinical trial [id number]. 2. HIV infection, well-controlled. 3. Hypertension. 4. Hyperlipidemia. 5. Gastroesophageal reflux. DISCUSSION: The patient is a pleasant 57-year-old man who continues his participation in the above clinical trail, this would be the final infusion of his participation. He will be followed as an outpatient after this. PLAN: 1. Manage per protocol. 2. We will plan on infusing him tomorrow morning and observing him the two subsequent nights with projected discharge on 04/15/2018. Hermelindo Maria M.D. DR: Marimar JOB#: [id number] CC:
[2018-05-13 20:00] VITALS: BP 121/73
[2018-05-13] MEDS: ATORVASTATIN 40MG ORAL SCH (21:04)
[2018-05-13] MEDS: VALSARTAN HCTZ ORAL SCH (21:04)
[2018-05-13] MEDS: RANITIDINE 300MG ORAL SCH (21:04)
[2018-05-13] MEDS: JULUCA ORAL SCH (21:05)
[2018-05-14] VITALS: BP 118/73
[2018-05-14] MEDS ORDERED: Investigational Drug 150 MG in NS 48 ML IV ONE (08:00)
--- NOTE | 2018-05-14 11:13 | General Progress Note ---
Progress Note Progress Note S: Pt doing well, no new complaints. Tolerated infusion of IP this morning without incident. O: VSS. Afebrile HEENT: nc/at Neck: supple Lungs: clear Cor: reg Abd: soft, NT Skin: no rashes Ext: no c/c/e Labs Test 05/13/18 14:40 White Blood Count 7.4 K/UL (4.8-10.8) Red Blood Count 4.84 M/UL (4.70-6.10) Hemoglobin 14.4 G/DL (14.2-18.0) Hematocrit 43.6 % (42.0-52.0) Mean Corpuscular Volume 90 FL (80-99) Mean Corpuscular Hemoglobin 29.9 PG (27.0-31.0) Mean Corpuscular Hemoglobin Concent 33.1 G/DL (32.0-36.0) Red Cell Distribution Width 12.1 % (11.6-14.8) Platelet Count 292 K/UL (150-450) Mean Platelet Volume 5.1 FL (6.5-10.1) Neutrophils (%) (Auto) 59.8 % (45.0-75.0) Lymphocytes (%) (Auto) 29.6 % (20.0-45.0) Monocytes (%) (Auto) 7.5 % (1.0-10.0) Eosinophils (%) (Auto) 2.0 % (0.0-3.0) Basophils (%) (Auto) 1.1 % (0.0-2.0) A: 1) Participation in [id number] 2) HIV infection, well-controlled 3) HTN 4) hyperlipidemia 5) GERD P: 1) Continue management per protocol 2) If stable, will anticipate discharge 05/16 Hermelindo Maria MD May 14, 2018 11:13
[2018-05-14] MEDS ORDERED: Acetaminophen 500mg (ES) tab ORAL PRN (14:15)
[2018-05-14] MEDS ORDERED: NS 275ml ONE (17:23)
[2018-05-14] MEDS ORDERED: Tubing IV Secondary IV ONE (17:23)
[2018-05-14 20:00] VITALS: BP 132/76
[2018-05-14] MEDS: ATORVASTATIN 40MG ORAL SCH (20:42)
[2018-05-14] MEDS: RANITIDINE 300MG ORAL SCH (20:42)
[2018-05-14] MEDS: VALSARTAN HCTZ ORAL SCH (20:43)
[2018-05-14] MEDS: JULUCA ORAL SCH (20:43)
[2018-05-15 02:00] VITALS: BP 107/63
[2018-05-15 09:09] LABS: BASOPHILS % (AUTO) 1.3 % (0.0-2.0); EOSINOPHILS % (AUTO) 3.4 % (0.0-3.0); HEMATOCRIT 44.3 % (42.0-52.0); HEMOGLOBIN 14.5 G/DL (14.2-18.0); LYMPHOCYTES % (AUTO) 31.8 % (20.0-45.0); MEAN CORPUSCULAR VOLUME 90 FL (80-99); MONOCYTES % (AUTO) 11.3 % (1.0-10.0); NEUTROPHILS % (AUTO) 52.2 % (45.0-75.0); PLATELET COUNT 303 K/UL (150-450); RED BLOOD COUNT 4.92 M/UL (4.70-6.10); RED CELL DISTRIBUTION WIDTH 12.2 % (11.6-14.8); WHITE BLOOD COUNT 7.6 K/UL (4.8-10.8)
[2018-05-15] MEDS: RANITIDINE 300MG ORAL SCH (20:49)
[2018-05-15] MEDS: VALSARTAN HCTZ ORAL SCH (20:50)
[2018-05-15] MEDS: JULUCA ORAL SCH (20:50)
[2018-05-15] MEDS: ATORVASTATIN 40MG ORAL SCH (20:54)
--- NOTE | 2018-05-16 08:28 | General Progress Note ---
Progress Note Progress Note LATE ENTRY This note is for my visit yesterday 05/15/18 at 1300. Patient is doing well, no new AEs noted HEENT: nc/at Lungs: clear Cor: reg Abd: soft Ext: no c/c/e Neuro: non-focal Skin: no rashes Labs Test 05/13/18 14:40 05/15/18 08:30 White Blood Count 7.4 K/UL (4.8-10.8) 7.6 K/UL (4.8-10.8) Red Blood Count 4.84 M/UL (4.70-6.10) 4.92 M/UL (4.70-6.10) Hemoglobin 14.4 G/DL (14.2-18.0) 14.5 G/DL (14.2-18.0) Hematocrit 43.6 % (42.0-52.0) 44.3 % (42.0-52.0) Mean Corpuscular Volume 90 FL (80-99) 90 FL (80-99) Mean Corpuscular Hemoglobin 29.9 PG (27.0-31.0) 29.5 PG (27.0-31.0) Mean Corpuscular Hemoglobin Concent 33.1 G/DL (32.0-36.0) 32.7 G/DL (32.0-36.0) Red Cell Distribution Width 12.1 % (11.6-14.8) 12.2 % (11.6-14.8) Platelet Count 292 K/UL (150-450) 303 K/UL (150-450) Mean Platelet Volume 5.1 FL (6.5-10.1) 5.7 FL (6.5-10.1) Neutrophils (%) (Auto) 59.8 % (45.0-75.0) 52.2 % (45.0-75.0) Lymphocytes (%) (Auto) 29.6 % (20.0-45.0) 31.8 % (20.0-45.0) Monocytes (%) (Auto) 7.5 % (1.0-10.0) 11.3 % (1.0-10.0) Eosinophils (%) (Auto) 2.0 % (0.0-3.0) 3.4 % (0.0-3.0) Basophils (%) (Auto) 1.1 % (0.0-2.0) 1.3 % (0.0-2.0) A: Participation in [id number] HIV, well controlled GERD Hypertension Hyperlipidemia P: manage per protocol anticipated discharge 05/16 Hermelindo Maria MD May 16, 2018 08:28
[2018-05-16 08:32] LABS: BASOPHILS % (AUTO) 1.1 % (0.0-2.0); EOSINOPHILS % (AUTO) 2.8 % (0.0-3.0); HEMATOCRIT 42.9 % (42.0-52.0); HEMOGLOBIN 14.1 G/DL (14.2-18.0); LYMPHOCYTES % (AUTO) 32.9 % (20.0-45.0); MEAN CORPUSCULAR VOLUME 89 FL (80-99); MONOCYTES % (AUTO) 9.7 % (1.0-10.0); NEUTROPHILS % (AUTO) 53.5 % (45.0-75.0); PLATELET COUNT 312 K/UL (150-450); RED BLOOD COUNT 4.81 M/UL (4.70-6.10); RED CELL DISTRIBUTION WIDTH 11.9 % (11.6-14.8); WHITE BLOOD COUNT 7.9 K/UL (4.8-10.8)
--- NOTE | 2018-05-17 00:45 | Discharge Summary ---
DATE OF ADMISSION: 05/13/2018 DATE OF DISCHARGE: 05/16/2018 DISCHARGE DIAGNOSES: 1. Human immunodeficiency virus infection. 2. Participation in [employer] clinical trial [id number]. 3. Hypertension. 4. Hyperlipidemia. 5. Gastroesophageal reflux. HISTORY OF PRESENT ILLNESS AND HOSPITAL COURSE: The patient is a 57-year-old man, who is admitted electively on 05/13/2018 for participation in the above-mentioned clinical trial. He was infused with investigational product on the morning of 05/14/2018 and tolerated this well without any observed adverse events. Remainder of his hospitalization was unremarkable and he was discharged in stable condition to home. DISCHARGE MEDICATIONS: Include Juluca 1 tablet once daily, Diovan HCT 60/12.5 once a day, Lipitor 40 mg once a day, and Zantac 300 mg once a day. The patient will be followed up in the office in 1 weeks' time. Hermelindo Maria M.D. DR: CHRISTINE JOB#: [id number] CC:
== END 2018-05-16 08:00 | disposition home or self-care (01) | DRG 977 ==
LOC: 3E 14:22
DX: B20 Human immunodeficiency virus [HIV] disease (principal); Z00.6 Encounter for examination for normal comparison and control in clinical research program; I10 Essential (primary) hypertension; E78.5 Hyperlipidemia, unspecified; K21.9 Gastro-esophageal reflux disease without esophagitis
CPT/HCPCS: 36415; 85025